=== PATIENT | male | born 1980 | race Caucasian/White ===

== ENCOUNTER 2023-12-27 12:12 | Emergency (ER) | payer MEDICAID ==
[~2023-12-27] VITALS: Ht 177.8 cm; Wt 89.2 kg
[2023-12-27] MEDS: LIDOcaine 1% W/epiNEPHrine 1:100,000 20ml vial SQ ONE (13:23)
[2023-12-27] MEDS: bacitracin 15gm ointment TP ONE (13:23)
[2023-12-27] MEDS ORDERED: CEPH-585 PO (13:33)
[2023-12-27 14:05] VITALS: BP 185/85; PULSE 73; RESP 16; TEMP 97.8; O2SAT 98
== END 2023-12-27 14:10 | disposition home or self-care (01) ==
LOC: ER 12:14
DX: S61.215A Laceration without foreign body of left ring finger without damage to nail, initial encounter (principal); W25.XXXA Contact with sharp glass, initial encounter; Y93.89 Activity, other specified; Y92.833 Campsite as the place of occurrence of the external cause; Y99.8 Other external cause status
CPT/HCPCS: 12001; 99282; 99283